=== PATIENT | female | born 1935 | race Caucasian/White ===

== ENCOUNTER 2017-01-05 07:23 | Inpatient (IN) | payer OTHER, MEDICARE ==
[~2017-01-05 07:23] MED LIST: POVIDONE-IODINE 20 ML in SODIUM CL IRRIG SOLUTION 500 ML IRR ONE; ROPIVACAINE 0.2% 80 MG, EPINEPHrine 0.2 MG, KETOROLAC TROMETHAMINE 30 MG in BAG 0 ML IU ONE; TRANEXAMIC ACID 780 MG in NS 100 ML IV ONE
[2017-01-05] MEDS ORDERED: ceFAZolin 2 GM/DEXTROSE 100 ML IV ONE (07:50)
[2017-01-05] MEDS ORDERED: FAMOTIDINE 20 MG TAB PO ONE (07:50)
[2017-01-05] MEDS ORDERED: DEXAMETHASONE 4 MG/ML VIAL IVP ONE (07:50)
[2017-01-05] MEDS ORDERED: ACETAMINOPHEN 325 MG TAB PO ONE (07:50)
[2017-01-05] MEDS ORDERED: LIDOCAINE 1% 2 ML INJ ID PRN (08:00)
[2017-01-05] MEDS ORDERED: LR 1,000 ML IV ONE (08:00)
[2017-01-05] MEDS ORDERED: ceFAZolin 1 GM/5 ML SYR ONE (08:44)
[2017-01-05] MEDS ORDERED: VANCOMYCIN 1 GM VIAL ONE (08:44)
--- NOTE | 2017-01-05 09:13 | PDHPUP ---
History & Physical Update H&P update statement: This history and physical update is based on an assessment of the patient which was completed after admission or registration (within 24 hours), but prior to the surgery/procedure. H&P update: H&P reviewed & patient examined, no change in patient's condition since H&P completed
[2017-01-05] MEDS ORDERED: MIDAZOLAM 2 MG/2 ML VIAL ONE (09:50)
[2017-01-05] MEDS ORDERED: MIDAZOLAM 2 MG/2 ML VIAL IVP ONE (09:56)
--- NOTE | 2017-01-05 09:57 | PDANEPAE ---
ANE History of Present Illness r knee osteoarthritis ANE Past Medical History - Cardiovascular History Hx Hypertension: Yes Hx Arrhythmias: No Hx Chest Pain: No Hx Coronary Artery / Peripheral Vascular Disease: No Hx CHF / Valvular Disease: No Hx Palpitations: No Cardiovascular History Comment: on chol Rx - Pulmonary History Hx COPD: No Hx Asthma/Reactive Airway Disease: No Hx Recent Upper Respiratory Infection: No Hx Oxygen in Use at Home: No Hx Sleep Apnea: No Sleep Apnea Screening Result - Last Documented: Negative - Neurologic History Hx Cerebrovascular Accident: No Hx Seizures: No Hx Dementia: No - Endocrine History Hx Diabetes: No - Renal History Hx Renal Disorders: Yes Renal History Comment: urgency - Liver History Hx Hepatic Disorders: No - Neurological & Psychiatric Hx Hx Neurological and Psychiatric Disorders: Yes Neurological / Psychiatric History Comment: neuropathy ft-on Rx - Cancer History Hx Cancer: No Cancer History Comment: skin CA - Congenital Disorder History Hx Congenital Disorders: No - GI History Hx Gastrointestinal Disorders: Yes Gastrointestinal History Comment: "erosions" in stomach - on Omeprazole - Other Health History Other Health History: nasal drainage. OA R knee pain - Chronic Pain History Chronic Pain: Yes (R knee) - Surgical History Prior Surgeries: L total hip 01-03-13. hand sx 2005. hysterectomy 1987. tonsillectomy child ANE Review of Systems Review of Systems: - Exercise capacity METS (RN): 4 METS ANE Patient History - Allergies Allergies/Adverse Reactions: Penicillins Allergy (Verified 12/15/16 10:06) Unknown Sulfa (Sulfonamide Antibiotics) Allergy (Verified 12/15/16 10:06) Unknown - Home Medications Home Medications: Aspirin [Aspirin 81mg (*)] 81 mg PO DAILY 12/08/16 [Last Taken 1 Week Ago ~12/29] Atorvastatin Calcium [Lipitor 40 mg (*)] 40 mg PO DAILY 12/08/16 [Last Taken 20:00] Cyanocobalamin [Vitamin B12 (*)] 1,000 mcg PO DAILY 12/08/16 [Last Taken 1 Week Ago ~12/29/16] Gabapentin [Neurontin 300 MG (*)] 300 mg PO HS 12/08/16 [Last Taken 01/04/17 20: 00] Herbals/Supplements -Info Only 1 ea PO DAILY 12/08/16 [Last Taken 1 Week Ago ~] Lisinopril [Zestril 5 mg (*)] 5 mg PO DAILY 12/08/16 [Last Taken 01/05/17 06:00] Omeprazole 40 mg PO DAILY 12/08/16 [Last Taken 01/05/17 06:00] - NPO status NPO Since - Liquids (Date): 01/04/17 NPO Since - Liquids (Time): 22:00 NPO Since - Solids (Date): 01/04/17 NPO Since - Solids (Time): 19:00 - Smoking Hx Smoking Status: Never smoked ANE Labs/Vital Signs - Vital Signs Blood Pressure: 163/88 Heart Rate: 65 Respiratory Rate: 20 O2 Sat (%): 92 Height: 157.48 cm Weight: 78.471 kg ANE Physical Exam - Airway Neck exam: FROM Mallampati Score: Class 1 Mouth exam: normal dental/mouth exam - Pulmonary Pulmonary: no respiratory distress - Cardiovascular Cardiovascular: regular rate and rhythym - ASA Status ASA Status: II ANE Anesthesia Plan Anesthesia Plan: MAC, spinal
[2017-01-05] MEDS ORDERED: fentaNYL 100 MCG/2 ML INJ ONE (10:01)
[2017-01-05] MEDS ORDERED: PROPOFOL/EMULSION 500 MG/50 ML BOTTLE IV ONE (10:01)
[2017-01-05] MEDS ORDERED: DEXAMETHASONE 4 MG/ML VIAL ONE (10:49)
[2017-01-05] MEDS ORDERED: ONDANSETRON 4 MG/2 ML VIAL ONE (10:49)
[2017-01-05] MEDS ORDERED: ROPIVACAINE HCL 150 MG/30 ML INJ ONE (10:49)
[2017-01-05] MEDS ORDERED: HYDROmorphONE/DILAUDID 1 MG/ML INJ IVP PRN (10:54)
[2017-01-05] MEDS ORDERED: ONDANSETRON 4 MG/2 ML VIAL IVP PRN ×2 (10:54→12:03)
[2017-01-05] MEDS ORDERED: NALOXONE HCL 0.4 MG/ML INJ IVP PRN (10:54)
[2017-01-05] MEDS ORDERED: fentaNYL 100 MCG/2 ML INJ IVP PRN (10:54)
[2017-01-05] MEDS ORDERED: PROMETHAZINE HCL 25 MG/ML INJ IVP PRN ×2 (10:54→12:03)
--- NOTE | 2017-01-05 11:45 | POSTOPPROG ---
Post Op Note Date of Operation: 01/05/17 Surgeon: Jairo Mccullough Hand Ii Thermal Cutter: Daria Anesthesiologist: Kevin Anesthesia: IV Sedation, Spinal Post-op Diagnosis: right knee arthritis Procedure: R TKA Inf/Abcess present in the surg proc area at time of surgery?: No EBL: 50-100 (add canal block)
[2017-01-05] MEDS ORDERED: TAPENTADOL HCL 50 MG TAB PO PRN (12:03)
[2017-01-05] MEDS ORDERED: LACTULOSE 20 GM/30 ML UDCUP PO PRN (12:03)
[2017-01-05] MEDS ORDERED: BISACODYL 10 MG SUPP PR PRN (12:03)
[2017-01-05] MEDS ORDERED: METOCLOPRAMIDE 10 MG/2 ML VIAL IVP PRN (12:03)
[2017-01-05] MEDS ORDERED: POLYETHYLENE GLYCOL 3350 17 GM PKT PO PRN (12:03)
[2017-01-05] MEDS ORDERED: PROMETHAZINE HCL 25 MG SUPPR PR PRN (12:03)
[2017-01-05] MEDS ORDERED: CYCLOBENZAPRINE 10 MG TAB PO PRN (12:03)
[2017-01-05] MEDS ORDERED: diphenhydrAMINE 25 MG CAP PO PRN (12:03)
[2017-01-05] MEDS ORDERED: TEMAZEPAM 15 MG CAP PO PRN (12:03)
[2017-01-05] MEDS ORDERED: DIPHENOXYLATE/ATROPINE LOMOTIL 1 TAB PO PRN (12:03)
[2017-01-05] MEDS ORDERED: traMADol 50 MG TAB PO PRN (12:03)
[2017-01-05] MEDS ORDERED: ONDANSETRON DISINTEGRATING 4 MG TAB PO PRN (12:03)
[2017-01-05] MEDS ORDERED: MAGNESIUM HYDROXIDE 30 ML UDCUP PO PRN (12:03)
[2017-01-05] MEDS ORDERED: KETOROLAC 30 MG/1 ML SDV IVP PRN (12:03)
--- NOTE | 2017-01-05 12:13 | POSTANESTH ---
Post Anesthetic Evaluation Cardiovascular Status: Normal, Stable Respiratory Status: Normal, Stable Level of Consciousness/Mental Status: Can Participate in Eval Pain Control: Adequate, Prn Tx Ordered Nausea/Vomiting Control: Adequate, Prn Tx Ordered Complications Possibly Related to Anesthesia: None Noted
[2017-01-05] MEDS ORDERED: LR 1,000 ML IV SCH (12:30)
--- NOTE | 2017-01-05 13:13 | GOP ---
[f rep st] OPERATIVE REPORT DATE OF OPERATION: 01/05/2017 SURGEON: Jairo Mccullough MD [employer] PROGRAM DIRECTOR: Sven Gonzáles CFA, and Tyesha Pinedo RN. ANESTHESIA: A combination of Marcaine spinal, IV sedation, and adductor canal block. ANESTHESIOLOGIST: Kaelyn Brown MD. PREOPERATIVE DIAGNOSIS: Right knee severe degenerative arthritis. POSTOPERATIVE DIAGNOSIS: Right knee severe degenerative arthritis. PROCEDURE PERFORMED: Right total knee arthroplasty, cemented, Calzada and Nephew Journey II, posterior stabilized. FINDINGS: DESCRIPTION OF PROCEDURE: The patient was given 2 g of preoperative IV Ancef within 60 minutes of haynes rgery. She also received IV tranexamic acid at a dose of 10 mg/kg. She was placed on the operating room table and given spinal anesthesia with Marcaine by Dr. Brown. She was then placed supine and g iven sedation. A Adams catheter was not used. She wore a BAUTISTA stocking and SCD on the nonoperative l eg. Her right lower extremity was prepped with ChloraPrep from the upper thigh tourniquet to the tip s of the toes. It was draped free using sterile sheets, stockinette, and Ioban plastic adhesive drap e. The lower leg was wrapped with a compressive Coban. The leg was exsanguinated with elevation and a 6-inch compressive wrap, and the pneumatic tourniquet was inflated to 275 mmHg. The World Health Organization time-out was performed to verify the correct patient identity and the c orrect surgical side and site. The [place] time-out was also performed. The LicenseStreamayo leg holding device was sterilely attached to the operating room table and used throughout the procedure to help position the knee. A straight midline incision was made centered on the patell a. Subcutaneous tissues were sharply divided and hemostasis was obtained using electrocautery. A medial subcutaneous flap was developed, and the capsule and synovium were opened in a medial parapa tellar fashion. Extensive degenerative changes were present in her patellofemoral joint and medial c ompartment. The medial capsule and periosteum were elevated off the rim of the medial tibial plateau all the way around to the posteromedial corner. The medial collateral ligament was released enough to balance the medial side of the knee. In order to improve exposure, her patella was prepared first. The original thickness of the patella was measured. Peripheral osteophytes were removed. I cut a flat surface on the back of the patella. It was sized for a 35 mm resurfacing patellar component. I removed enough bone from the patella haynes ch that the remaining bone plus the thickness of the patellar component recreated the original thickn ess of the patella. The composite thickness of the patella was 21 mm. The intramedullary alignment guide system was used to set up the distal femoral cut. The distal femu r was cut in 6 degrees of valgus. Because of a preoperative flexion contracture, I made a +2 mm cut on the distal femur. The sizing jig was used to determine proper femoral sizing. I shifted the jig anteriorly 2 mm in order to accommodate a size 5 femoral component without notching the anterior lew ex. The 5-in-1 cutting block was applied and the anterior and posterior condylar cuts and chamfer cu ts were made. The final jig was used to remove the central portion of the distal femur to accommodat e the posterior stabilized femoral component. I was careful to determine proper rotation by referenc ing off Whitesides line. Each cut was checked for accuracy before and after it was made. The femur was sized for a size 5 posterior stabilized component. The trial component was tapped into place and was a good fit. Next, the tibia was prepared. The proximal tibial cut was made using the extramedullary alignment gu shayne system. The cut was made in a few degrees of posterior slope. I was careful to achieve proper v arus/valgus alignment and proper rotation. The posterior compartment was cleared of meniscal remnant s. Osteophytes were removed from the back of the femoral condyles. I checked the flexion extension gaps, and they were equal, balanced and rectangular. The tibia was sized for a size 4 component. With the trial components in place, I selected a 10 mm p olyethylene posterior stabilized tibial insert. The knee came to full extension and flexed to 120 de grees. There was no overstuffing in flexion. Her collateral ligaments were stable and balanced in 9 0 degrees of flexion and full extension. The trial patellar button was applied, and patellar trackin g was checked. She had a slight tendency for lateral tilt, so I did a very limited lateral release. After that tracking was excellent without any digital pressure. 40 mL of the joint anesthetic cocktail was injected in the posterior capsule, the periarticular struc tures, the quadriceps muscle and tendon areas, and the subcutaneous tissues along the skin edges. A second dose of IV tranexamic acid was given at a dose of 10 mg/kg. The surfaces were prepared for cementing. They were carefully cleaned with the pulsating lavage irri gation and thoroughly dried. The CarboJet device was used to blow dry the cancellous surfaces. A do uble batch of high viscosity methylmethacrylate cement with 2 g of powdered vancomycin added was mixe d. While in a semi-liquid state, all [address] components were cemented in place. Excess cement was removed before it hardened. The 10 mm tibial insert was re-tried and was the proper thickness. The actual component was inserted and locked into place. The tourniquet was deflated. Total tourniquet time wa s 48 minutes. The knee was thoroughly irrigated 1 final time with a dilute Betadine solution. The vastus medialis portion of the extensor mechanism was repaired with several interrupted figure-of -eight #2 FiberWire sutures. The capsule and synovium were closed first with multiple interrupted fi [id number] 0 PDS sutures, followed by a running #2 barbed Ethicon Stratafix PDO suture. Subcutane ous tissues were closed with a running 0 barbed Ethicon Stratafix Monoderm suture. The skin was clos ed with a running 3-0 barbed Ethicon Stratafix Monoderm subcuticular suture. The skin was sealed wit h half-inch Steri-Strips. The wound was covered with a 9 mm x 25 mm Aquacel Ag surgical dressing fol lowed by a 6-inch compressive wrap. The cooling device was applied. She wore a stocking and SCD on the opposite leg during the procedure. I used a size 5 cemented Calzada and Nephew Oxinium posterior stabilized femoral component, size 4 ceme nted tibial base plate, 10 mm posterior stabilized tibial insert, and a 35 mm cemented round all-poly ethylene resurfacing patellar component. The estimated blood loss following placement of the tourniquet was about 100 cc. The sponge and need le count were correct on 2 occasions. The patient was awakened from anesthesia, transferred to her gurney, and taken to PACU in satisfactor y condition. There were no recognized intraoperative complications. In the PACU, for additional postoperative pain control, Dr. Brown performed an adductor canal block. Sven Gonzáles and Tyesha Pinedo acted as surgical assistants. Their assistance was a medical necessi ty to safely complete the procedure. Copy requested to: Dr. Kavya Mcneal /[id number]/MODL
[2017-01-05] MEDS: ACETAMINOPHEN 325 MG TAB PO SCH (17:42)
[2017-01-05] MEDS: ceFAZolin 2 GM/DEXTROSE 100 ML IV SCH (17:42)
[2017-01-05] MEDS: oxyCODONE IR 5 MG TAB PO PRN (20:45)
[2017-01-05] MEDS: ASPIRIN 325 MG TAB PO SCH (20:45)
[2017-01-05] MEDS: FAMOTIDINE 20 MG TAB PO SCH (20:45)
[2017-01-05] MEDS: SENNOSIDES/DOCUSATE SODIUM TAB PO SCH (20:46)
[2017-01-05] MEDS ORDERED: GABAPENTIN 300 MG CAP PO SCH (21:00)
[2017-01-06] MEDS: ceFAZolin 2 GM/DEXTROSE 100 ML IV SCH (01:13)
[2017-01-06] MEDS: ACETAMINOPHEN 325 MG TAB PO SCH ×3 (01:13→12:18)
[2017-01-06 05:15] LABS: HEMATOCRIT 41.5 % (38.0-47.0); HEMOGLOBIN 13.2 g/dL (12.6-16.3)
[2017-01-06] MEDS: oxyCODONE IR 5 MG TAB PO PRN ×2 (06:11→10:14)
--- NOTE | 2017-01-06 08:38 | SOAPPROG ---
SOAP Progress Note Assessment/Plan: Assessment: POD #1, s/p TKA H/H ok. VSS. Post op films look good. Moderate pain overnight. Dressing clean and dry. Plan: D/c to home later today. 01/06/17 08:35 Objective: Vital Signs Temp Pulse Resp BP Pulse Ox 35.8 C L 64 14 107/65 95 01/06/17 07:35 01/06/17 07:35 01/06/17 07:35 01/06/17 07:35 01/06/17 07:35 Laboratory Results 01/06/17 04:55 01/05/17 01/06/17 01/07/17 05:59 05:59 05:59 Intake Total 1380 Output Total 850 Balance 530 ICD10 Worksheet Patient Problems: Problems Problem Status Onset Osteoarthritis of right knee Acute Osteoarthritis of hip Active
[2017-01-06] MEDS ORDERED: LISINOPRIL 5 MG TAB PO SCH (09:00)
[2017-01-06] MEDS ORDERED: ATORVASTATIN CALCIUM 40 MG TAB PO SCH (09:00)
[2017-01-06] MEDS ORDERED: CYANO/VITAMIN B12 1000 MCG TAB PO SCH (09:00)
[2017-01-06] MEDS ORDERED: FERROUS SULFATE 140 MG TAB.ER PO SCH (09:00)
[2017-01-06] MEDS: ASPIRIN 325 MG TAB PO SCH (09:01)
[2017-01-06] MEDS: FAMOTIDINE 20 MG TAB PO SCH (09:02)
[2017-01-06] MEDS: SENNOSIDES/DOCUSATE SODIUM TAB PO SCH (09:04)
--- NOTE | 2017-01-06 11:15 | PDIAF ---
- Diagnosis Diagnosis: R knee OA Code Status: Full Code - Medication Management Discharge Medications: Medications to Continue on Transfer Atorvastatin Calcium [Lipitor 40 mg (*)] 40 mg PO DAILY 12/08/16 [Last Taken 20:00] Cyanocobalamin [Vitamin B12 (*)] 1,000 mcg PO DAILY 12/08/16 [Last Taken 1 Week Ago ~12/29/16] Gabapentin [Neurontin 300 MG (*)] 300 mg PO HS 12/08/16 [Last Taken 01/04/17 20: 00] Herbals/Supplements -Info Only 1 ea PO DAILY 12/08/16 [Last Taken 1 Week Ago ~] Lisinopril [Zestril 5 mg (*)] 5 mg PO DAILY 12/08/16 [Last Taken 01/05/17 06:00] Omeprazole 40 mg PO DAILY 12/08/16 [Last Taken 01/05/17 06:00] Acetaminophen [Tylenol 325mg (*)] 650 mg PO Q6HRS tab 01/06/17 [Last Taken Unknown] Aspirin [Aspirin 325 mg (*)] 325 mg PO DAILY tab 01/06/17 [Last Taken Unknown] Cyclobenzaprine [Flexeril 10 MG (*)] 10 mg PO Q8HRS PRN #21 tab 01/06/17 [Last Taken Unknown] Ferrous Sulfate [Slow Fe 140 MG (*)] 140 mg PO DAILY tab.er 01/06/17 [Last Taken Unknown] Ondansetron Odt [Zofran Odt 4 mg (*)] 4 mg PO Q4HRS PRN tab 01/06/17 [Last Taken Unknown] Sennosides/Docusate Sodium [Senokot-S] 1 - 2 tab PO BID tab 01/06/17 [Last Taken Unknown] oxyCODONE IR [Oxycodone Ir (*)] 5 - 10 mg PO Q3HRS PRN tab 01/06/17 [Last Taken Unknown] traMADol [Ultram 50 mg (*)] 50 mg PO Q6HRS PRN tab 01/06/17 [Last Taken Unknown ] Discharge Medications: Refer to the Discharge Home Medication list for PRN reason. - Orders Services needed: Home Care, Physical Therapy Home Care Face to Face: I certify that this patient was under my care and that I had the required [id number] encounter meeting the encounter requirements on the discharge day. My findings support the fact that the patient is homebound as defined in Home Care Face to Face Continued: CMS Chapter 7 Medicare Benefits Manual 30.1.1 , The condition of the patient is such that there exists a normal inability to leave home and consequently, leaving home would require a considerable and taxing effort. Diet Recommendation: no restrictions on diet Diet Texture: Regular Texture Diet Shashi Stockings Discontinue Date: 1 week Wound Care Instructions: keep clean and dry. You may shower. Activity/Weight Bearing Restrictions: as tolerated. - Follow Up Care Current Providers and Referrals: THERESA WILSON [Other] Jairo Mccullough MD [Medical Doctor] - (follow up in 2 weeks)
[2017-01-06 11:24] VITALS: BP 125/68; PULSE 61; RESP 12; TEMP 97; O2SAT 92
--- NOTE | 2017-01-06 12:44 | ASMTCMCOM ---
CM Note CM Note Notes: Met with patient and family regarding discharge poc. Patient lives near [place] and has good support from family. Patient would like home health care upon discharge, choice is [facility]. Spoke with Viridiana at [facility] #[phone] regarding referral, info sent. Confirmed address and phone #. D/W PA who will place home health orders. Confirmed with Viridiana at [facility] that all info received. Case Manatement available for any further needs. Date Signed: 01/06/2017 12:44 PM Electronically Signed By:Mare Max RN
--- NOTE | 2017-01-06 13:40 | ASDISCHSUM ---
Discharge Information Plan Status:Home with Home Health Medically Cleared to Leave: Discharge Date:01/06/2017 01:15 PM CM D/C Disposition:Home Health Service ADT D/C Disposition:[id number] Projected Discharge Date:01/06/2017 11:00 AM Transportation at D/C:Family Discharge Delay Reason: Follow-Up Date:01/06/2017 11:00 AM Discharge Slot: Final Diagnosis: Placement Information Referral Type:*Home Health Care Services Referral ID:[id number] Provider Name:[facility] Address 1:[address] [address] Phone Number: Address 2: Fax Number: City:[place] Selection Factors: State:[place] Patient Contact Information Contact Name:CHRISTOPHER Relationship: Address:[address] City:[place] Alternate Phone: State/Zip Code:[place] [address] Email: Financial Information Financial Class: Primary Plan Desc:MEDICARE INPATIENT Primary Plan Number:[id number] Secondary Plan Desc:AARP/MDR SUPPLEMENT Secondary Plan Number:[id number] Assessment Information [facility] CM Progress Note CM Note CM Note Notes: Met with patient and family regarding discharge poc. Patient lives near [place] and has good support from family. Patient would like home health care upon discharge, choice is [facility] [place]. Spoke with Viridiana at [facility] #[phone] regarding referral, info sent. Confirmed address and phone #. D/W PA who will place home health orders. Confirmed with Viridiana at [facility] that all info received. Case Manatement available for any further needs. Date Signed: 01/06/2017 12:44 PM Electronically Signed By:Mare Max RN Intervention Information
== END 2017-01-06 13:15 | disposition home health service (06) | DRG 470 ==
LOC: F3N 07:23
PROVIDERS: ADMIT Orthopaedic Surgery; ATTEND Orthopaedic Surgery
PROC: 0SRC0J9 Replacement of Right Knee Joint with Synthetic Substitute, Cemented, Open Approach (ICD-10-PCS; principal; 2017-01-05 09:45)
DX: M17.11 Unilateral primary osteoarthritis, right knee (principal); I10 Essential (primary) hypertension; R39.15 Urgency of urination; Z96.642 Presence of left artificial hip joint; Z90.710 Acquired absence of both cervix and uterus
CPT/HCPCS: 97116-GP; 97161-GP; 97165-GO; C1713; G8978-GP-CJ; G8979-GP-CI; G8980-GP-CI; G8987-GO-CI; G8989-GO-CI; J0171; J0690; J1100; J1885; J2250; J2405; J2704; J2795; J3010; J3370